=== PATIENT | female | born 1960 | race Caucasian/White ===

== ENCOUNTER → 2016-11-22 | Outpatient (CLI) | payer BC ==
--- NOTE | 2016-11-28 17:34 | MY ---
EXAMINATION: Bilateral digital mammography utilizing CAD. HISTORY: Screening exam. Comparison is made to previous studies dated 11/22/2015, 10/26/2014 . FINDINGS: Bilateral heterogeneously dense breast tissue. Postsurgical changes are noted within the outer breasts bilaterally. No suspicious calcifications, masses or architectural distortions. No pathologic appearing lymph nodes, no abnormal skin thickening or nipple inversion. CAD highlighte d regions appear normal at this time. IMPRESSION: BI-RADS category II - Benign finding. Continued screening according to ACR-ACS guidelin es suggested. THE FALSE-NEGATIVE RATE OF MAMMOGRAM IS APPROXIMATELY 10%. MANAGEMENT OF A PALPABLE ABNORMALITY MUST BE BASED UPON CLINICAL GROUNDS. SENSITIVITY FOR DETECTION OF ABNORMALITIES IN DENSE BREASTS IS LOW. NOTE: A letter will be sent to the patient regarding findings. [facility] -- MARINA Cohen [phone] - FAX [phone]
== END ==
LOC: MW.MAM 08:27
PROVIDERS: ATTEND Obstetrics & Gynecology
DX: Z12.31 Encounter for screening mammogram for malignant neoplasm of breast (principal)
CPT/HCPCS: G0202; G0202-26

== ENCOUNTER 2021-03-17 07:19 | Day surgery (SDC) | payer BC ==
[~2021-03-17 07:19] MED LIST: Lactated Ringers 1,000 ML IV SCH; Sodium Chloride 0.9% 10 ML SDV IV PRN; Sodium Chloride 0.9% 10 ML Syringe FLUSH PRN; Sodium Chloride 0.9% 2.5 ML Syringe FLUSH PRN
[2021-03-17] MEDS ORDERED: Propofol 200 MG/20 ML SDV ONE (07:53)
--- NOTE | 2021-03-17 08:08 | PCM.PREANE ---
Preanesthetic Assessment - Anesthesia/Transfusion/Family Hx Anesthesia History: Prior Anesthesia Without Reaction Transfusion History: No Prior Transfusion(s) - Review of Systems General: No Symptoms Pulmonary: No Symptoms Cardiovascular: No Symptoms Gastrointestinal: No Symptoms Neurological: No Symptoms Other: Reports: None - Physical Assessment NPO Status Date: 03/17/21 NPO Status Time: 00:00 Height: 5 ft 6 in Weight: 135 lb ASA Class: 2 Mental Status: Alert & Oriented x3 Airway Class: Mallampati = 2 Dentition: Reports: Normal Dentition, [place](s), Implants Thyro-Mental Finger Breadths: 3 Mouth Opening Finger Breadths: 3 ROM/Head Extension: Full Lungs: Clear to Auscultation, Normal Respiratory Effort Cardiovascular: Regular Rate, Regular Rhythm - Allergies Allergies/Adverse Reactions: Allergies Allergy/AdvReac Type Severity Reaction Status Date / Time No Known Allergies Allergy Verified 03/14/21 09:19 - Blood Blood Available: No - Acknowledgements Anesthesia Type Planned: General Anesthesia Pt an Appropriate Candidate for the Planned Anesthesia: Yes Alternatives and Risks of Anesthesia Discussed w Pt/Guardian: Yes Pt/Guardian Understands and Agrees with Anesthesia Plan: Yes PreAnesthesia Questionnaire HEENT History: Reports: Other (See Below) Other HEENT History: wears glasses/contacts, has top and bottom partial Cardiovascular History: Reports: None Respiratory History: Reports: None Gastrointestinal History: Reports: None Genitourinary History: Reports: None Musculoskeletal History: Reports: None Neurological History: Reports: None Psychiatric History: Reports: Depression Endocrine/Metabolic History: Reports: None Hematologic History: Reports: None Immunologic History: Reports: None Oncologic (Cancer) History: Reports: None Dermatologic History: Reports: None - Past Surgical History Head Surgeries/Procedures: Reports: None HEENT Surgical History: Reports: None Cardiovascular Surgical History: Reports: None Respiratory Surgical History: Reports: None GI Surgical History: Reports: Colonoscopy Female Surgical History: Reports: Breast Biopsy, Hysterectomy, Salpingo- Oophorectomy, Other (See Below) Other Female Surgeries/Procedures: exploratory laparoscopy Endocrine Surgical History: Reports: None Neurological Surgical History: Reports: None Musculoskeletal Surgical History: Reports: None Oncologic Surgical History: Reports: None Dermatological Surgical History: Reports: None - SUBSTANCE USE Tobacco Use Status *Q: Current Every Day Tobacco User Tobacco Use Within Last Twelve Months: Cigarettes - HOME MEDS Home Medications: Home Meds Calcium Carbonate [Calcium] 1,200 mg PO DAILY 03/14/21 [History] Cholecalciferol (Vitamin D3) [Vitamin D3] 5,000 units PO DAILY 03/14/21 [History] Citalopram Hydrobromide [Celexa] 10 mg PO DAILY 03/14/21 [History] - CURRENT (IN HOUSE) MEDS Current Meds: Current Medications Lactated Ringer's (Ringers, Lactated) 1,000 mls @ 125 mls/hr IV ASDIRECTED JOSE ANTONIO Sodium Chloride (Sodium Chloride 0.9% 10 Ml Syringe) 10 ml FLUSH ASDIRECTED PRN PRN Reason: Keep Vein Open Sodium Chloride (Sodium Chloride 0.9% 2.5 Ml Syringe) 2.5 ml FLUSH ASDIRECTED PRN PRN Reason: Keep Vein Open Sodium Chloride (Sodium Chloride 0.9% 10 Ml Syringe) 10 ml FLUSH ASDIRECTED PRN PRN Reason: Keep Vein Open Sodium Chloride (Sodium Chloride 0.9% 2.5 Ml Syringe) 2.5 ml FLUSH ASDIRECTED PRN PRN Reason: Keep Vein Open Sodium Chloride (Sodium Chloride 0.9% 10 Ml Sdv) 10 ml IV ASDIRECTED PRN PRN Reason: IV Use Discontinued Medications Lidocaine HCl (Lidocaine 1% 5 Ml Sdv) Confirm Administered Dose 5 ml .ROUTE .STK-MED ONE Stop: 03/17/21 07:54 Propofol (Propofol 200 Mg/20 Ml Sdv) Confirm Administered Dose 400 mg .ROUTE .STK-MED ONE Stop: 03/17/21 07:54
--- NOTE | 2021-03-17 08:25 | PCM.OPNOTE ---
- General Post-Op/Procedure Note Date of Surgery/Procedure: 03/17/21 Operative Procedure(s): Port a cath removal Findings: right subclavian port a cath intact Pre Op Diagnosis: Colon cancer Post-Op Diagnosis: same Anesthesia Technique: MAC Primary Surgeon: Augustina Mota Fluid Replacement, Intraop: 500 EBL in mLs: 5 Condition: Good
--- NOTE | 2021-03-17 09:14 | PCM48HPAN ---
Post Anesthesia Note - EVALUATION WITHIN 48HRS OF ANESTHETIC Vital Signs in Normal Range: Yes Patient Participated in Evaluation: Yes Respiratory Function Stable: Yes Airway Patent: Yes Cardiovascular Function Stable: Yes Hydration Status Stable: Yes Pain Control Satisfactory: Yes Nausea and Vomiting Control Satisfactory: Yes Mental Status Recovered: Yes Vital Signs: Last Vital Signs Temp 98.1 F 03/17/21 07:45 Pulse 62 03/17/21 07:45 Resp 15 03/17/21 07:45 BP 94/55 L 03/17/21 07:45 Pulse Ox 100 03/17/21 07:45
--- NOTE | 2021-03-17 09:14 | PCM.POSTAN ---
POST ANESTHESIA ASSESSMENT - MENTAL STATUS Mental Status: Alert, Oriented - VITAL SIGNS Vital Signs: Last Vital Signs Temp 98.1 F 03/17/21 07:45 Pulse 62 03/17/21 07:45 Resp 15 03/17/21 07:45 BP 94/55 L 03/17/21 07:45 Pulse Ox 100 03/17/21 07:45 - RESPIRATORY Respiratory Status: Respiratory Rate WNL, Airway Patent, O2 Saturation Stable - CARDIOVASCULAR CV Status: Pulse Rate WNL, Blood Pressure Stable - GASTROINTESTINAL GI Status: No Symptoms - POST OP HYDRATION Hydration Status: Adequate & Stable
--- NOTE | 2021-03-17 11:22 | OR ---
SURGEON: AUGUSTINA MOTA MD DATE OF PROCEDURE: 03/17/2021 PREOPERATIVE DIAGNOSIS: Screening colonoscopy. POSTOPERATIVE DIAGNOSES: 1. Ascending colon polyp. 2. Transverse colon polyp at 65 cm. 3. Sigmoid colon polyp. 4. Rectal polyp x2. PROCEDURE PERFORMED: Screening colonoscopy with polypectomy. PRIMARY SURGEON: Augustina Mota MD ANESTHESIA: MAC. INSTRUMENT USED: Olympus colonoscope. EXTENT OF EXAM: To the cecum. PREPARATION: Good. LIMITATIONS: None. INDICATIONS FOR EXAMINATION: The patient is a 61-year-old female who presents for screening colonoscopy. I explained the procedure, expected perioperative course, and the risks. She verbalized understanding and wishes to proceed. PROCEDURE IN DETAIL: The patient was brought to the endoscopy suite and placed in a left lateral decubitus position. A time-out was completed verifying the patient's name, age, date of , allergies, and procedure to be performed. Monitored anesthesia care was induced and continuous oxygen was provided via face mask throughout the procedure. After adequate sedation was achieved, a digital rectal exam was performed. This exam was within normal limits. A well-lubricated colonoscope was inserted in the rectum and advanced under direct visualization to the level of the cecum. The cecum was identified by both visual and anatomic landmarks. A photograph was taken of the cecal cap as well as with the scope retroflexed within the cecum. The scope was then fully withdrawn while examining the color, texture, anatomy, and integrity of the mucosa from the cecum to the anal canal. The patient was noted to have an ascending colon polyp. This was small and sessile and removed in piecemeal fashion. She had a transverse colon polyp that was small and sessile at 65 cm. This was removed using a cold biopsy forceps as well. In the distal sigmoid colon, she had 2 adjacent small polyps, which appeared hyperplastic, but these were removed and sent together labeled as sigmoid colon polyp. In the rectum, she had 2 polyps. These were removed separately and labeled rectal polyp #1, which was a smaller polyp, and rectal polyp #2, which was a larger polyp. The scope was then retroflexed to allow visualization of the anal canal opening. This appeared normal and a photograph was taken. The scope was then straightened out and fully withdrawn. The cecum to anus time was 19 minutes. The patient tolerated the procedure well and was transferred to the PACU in stable condition. ENDOSCOPIC DIAGNOSES: 1. Ascending colon polyp. 2. Transverse colon polyp at 65 cm. 3. Sigmoid colon polyp. 4. Rectal polyp x2. RECOMMENDATIONS: Follow up in clinic in 2 weeks. ABRIL ALLRED /[id number]
--- NOTE | 2021-03-17 13:12 | PCM.OPNOTE ---
- General Post-Op/Procedure Note Date of Surgery/Procedure: 03/17/21 Operative Procedure(s): Screening colonoscopy Findings: Ascending colon polyp, transverse colon polyp, rectal polyp x 2, sigmoid colon polyp Pre Op Diagnosis: Screening colonoscopy Post-Op Diagnosis: Ascending colon polyp, transverse colon polyp, rectal polyp x 2, sigmoid colon polyp Anesthesia Technique: [facility] [place] Primary Surgeon: Augustina Mota Condition: Good Free Text/Narrative:: Intake & Output 03/16/21 03/17/21 03/17/21 22:59 06:59 14:59 Intake Total 1050 Balance 1050
== END 2021-03-17 09:50 | disposition home or self-care (01) ==
LOC: MW.SDS 07:19
PROVIDERS: ATTEND Surgery
DX: Z12.11 Encounter for screening for malignant neoplasm of colon (principal); D12.2 Benign neoplasm of ascending colon; D12.3 Benign neoplasm of transverse colon; D12.8 Benign neoplasm of rectum; F17.210 Nicotine dependence, cigarettes, uncomplicated
CPT/HCPCS: 45380; 88305; J2704; J7120; 00812

== ENCOUNTER 2024-04-08 09:40 | Day surgery (SDC) | payer MEDICARE, BC ==
[~2024-04-08 09:40] MED LIST changes: -Lactated Ringers 1,000 ML IV SCH; -Sodium Chloride 0.9% 10 ML SDV IV PRN; +Sodium Chloride 0.9% 20 ML SDV IV PRN
[2024-04-08] MEDS: Lactated Ringers 1,000 ML IV SCH (10:27)
[2024-04-08] MEDS ORDERED: propofoL 50 ML ONE (11:19)
== END 2024-04-08 13:35 | disposition home or self-care (01) ==
LOC: MW.SDS 09:40
PROVIDERS: ATTEND Surgery
DX: Z12.11 Encounter for screening for malignant neoplasm of colon (principal); F32.A Depression, unspecified; F17.210 Nicotine dependence, cigarettes, uncomplicated; Z79.899 Other long term (current) drug therapy; Z86.010 Personal history of colon polyps
CPT/HCPCS: G0105; J2704; J7120